=== PATIENT | male | born 1960 | race Hispanic/Latino ===

== ENCOUNTER 2024-03-12 16:31 | Emergency (ER) | payer MEDICARE, SELFPAY ==
--- OUTSIDE RECORDS SUMMARY | 2024-03-12 16:34 | XMS REPORT | Continuity of Care Document ---
Author Name Unknown Address [address] [facility] [address] [place] [address] [facility] thconnect Address [address] [facility] [address] [place] [address] Care Team Providers Care News Gathering Technician Name Role Phone Unavailable Unavailable Unavailable Encounters Start Date/Time End Date/Time Encounter Type Admission Type Attending Clinicians [facility] [place] Facility Care Department Encounter ID Source 2022-10-31 16:57:48 2022-10-31 16:57:48 Outpatient SFA SFA [id number] Riley Panda 2022-08-26 13:24:23 2022-08-26 13:24:23 Outpatient SFA SFA [id number] Riley Panda 2022-06-19 16:45:56 2022-06-19 16:45:56 Outpatient SFA SFA [id number] iRley Panda
[2024-03-12] MEDS ORDERED: METOCLOPRAMIDE 10 MG/2mL INJ ONE (17:12)
[2024-03-12] MEDS ORDERED: MORPHINE 4 MG/ML SYR ONE (17:12)
[2024-03-12] MEDS ORDERED: NA CHLORIDE 0.9% 1,000 ML ONE (17:12)
[2024-03-12] MEDS ORDERED: DIPHENHYDRAMINE 50 MG/ML VIAL ONE (17:12)
--- NOTE | 2024-03-12 17:14 | RAD REPORT ---
EXAM: CT brain without contrast HISTORY: Headache COMPARISON: None TECHNIQUE: Multiple contiguous axial images were obtained and a CT of the brain without contrast.. Sagittal and coronal reconstruction performed. Automated exposure control, adjustment of the mA and/or kV according to patient size, and/or iterative reconstruction. Unless otherwise specified, incidental f indings do not require dedicated imaging follow-up FINDINGS: An intracranial bleed is not seen Ventricles are normal caliber No extra-axial fluid collection noted Mild low-density paraventricular, deep and subcortical white matter likely ischemic changes secondary to small vessel disease No fluid within the visualized sinuses or mastoids noted. IMPRESSION: No acute intracranial abnormality noted. If the patient continues to have symptoms to suggest an acute intracranial abnormality then MRI of th e brain would be recommended.
[2024-03-12 17:25] LABS: Absolute Lymphocytes (CBC) 1.1 K/uL (0.7-4.9); Absolute Monocytes 0.3 K/uL (0.1-1.3); Absolute Neutrophil 7.4 K/uL (1.8-8.0); Basophils % 0.3 % (0-1.3); Eosinophils % 0.1 % (0-4.4); Hematocrit 44.1 % (39.6-49.0); Hemoglobin 15.3 g/dL (13.6-17.9); Lymphocytes % 12.2 % (15.3-44.8); MCH 32.1 pg (27.0-35.0); MCHC 34.7 g/dL (32.0-36.0); MCV 92.4 fL (80-100); MPV 8.1 fL (7.6-11.3); Monocytes % 3.3 % (3.3-12.3); Neutrophils % 84.1 % (41.7-73.7); Platelets 228 thou/uL (152-406); RBC Red Blood Cell Count 4.78 M/uL (4.33-5.43)
[2024-03-12 17:39] LABS: Albumin 3.5 g/dL (3.4-5.0); Albumin/Globulin Ratio 0.8 (1.1-1.8); Anion Gap 12.3 mEq/L (5.0-15.0); Bilirubin Total 0.5 mg/dL (0.2-1.0); Globulin 4.2 g/dL (2.3-3.5); Protein, Total 7.7 g/dL (6.4-8.2)
[2024-03-12 17:41] LABS: Potassium 4.3 mEq/L (3.5-5.1)
--- NOTE | 2024-03-12 17:48 | ER ---
Nurse's Notes [facility] Name: Thomas Roman Age: 63 yrs Sex: Male : 1960 Arrival Date: 03/12/2024 Time: 16:31 Bed 17 Private MD: Diagnosis: Headache Presentation: 03/12 16:40 Chief complaint: EMS states: pt not feeling well, was going to the doctor and started iw having a headache and n/v. Coronavirus screen: Client presents with at least one sign or symptom that may indicate coronavirus-19. Ebola Screen: No symptoms or risks identified at this time. Initial Sepsis Screen: Does the patient meet any 2 criteria? No. Patient's initial sepsis screen is negative. Does the patient have a suspected source of infection? No. Patient's initial sepsis screen is negative. Risk Assessment: Do you want to hurt yourself or someone else? Patient reports no desire to harm self or others. Onset of symptoms was March 12, 2024. 16:40 Method Of Arrival: EMS: [facility] iw 16:40 Acuity: DARIAN 2 iw Triage Assessment: 18:06 Headache History: The patient has had previous headaches and this one is different than me1 previous episodes, and this one is more severe than previous episodes. General: Appears uncomfortable. Pain: Also complains of. Pain: Complains of pain in head. Historical: - Allergies: 16:42 No Known Allergies; iw - PMHx: 16:42 Hypertensive disorder; Diabetes mellitus; iw - PSHx: 16:42 right index finger; iw - Immunization history:: Adult Immunizations not up to date. - Infectious Disease History:: Denies. - Social history:: Smoking status: Patient denies any tobacco usage or history of. Screenin:45 [facility] ED Fall Risk Assessment (Adult) History of falling in the last 3 months, me1 including since admission No falls in past 3 months (0 pts) Confusion or Disorientation No (0 pts) Intoxicated or Sedated No (0 pts) Impaired Gait No (0 pts) Mobility Assist Device Used No (0 pt) Altered Elimination No (0 pt) Score/Fall Risk Level 0 - 2 = Low Risk Maintained a safe environment, Provided non-skid footwear, Hourly rounding (assess needs \\T\\ fall precautionary measures) done. Abuse screen: Denies threats or abuse. Nutritional screening: No deficits noted. Tuberculosis screening: No symptoms or risk factors identified. Assessment: 16:45 General: Appears uncomfortable, well groomed, well developed, well nourished, Behavior me1 is calm, cooperative, appropriate for age, Reports pt not feeling well, was going to the doctor and started having a headache and n/v. Pain: Complains of pain in head Pain does not radiate. Pain currently is 10 out of 10 on a pain scale. Quality of pain is described as aching, throbbing, Pain began gradually, Is continuous. Neuro: Level of Consciousness is awake, alert, obeys commands, Oriented to person, place, time, situation, Appropriate for age Reports headache that is the "worst ever". Cardiovascular: Patient's skin is warm and dry. Respiratory: Airway is patent Respiratory effort is even, unlabored, Respiratory pattern is regular, symmetrical. GI: Reports nausea, vomiting. : No signs and/or symptoms were reported regarding the genitourinary system. EENT: No signs and/or symptoms were reported regarding the EENT system. Derm: Skin is intact, is healthy with good turgor, Skin is normal. Musculoskeletal: No signs and/or symptoms reported regarding the musculoskeletal system. Vital Signs: 16:40 BP 164 / 50; Pulse 73; Resp 18; Temp 97; Pulse Ox 98% on R/A; Weight 81.65 kg; Height 5 iw ft. 7 in. ; Pain 9/10; 17:00 BP 169 / 65; Pulse 73; Resp 18; Pulse Ox 100% ; me1 18:04 Pain 3/10; me1 18:05 Pain 3/10; me1 18:05 Pain 3/10; me1 18:09 BP 177 / 75; Pulse 71; Resp 18; Temp 98.5; Pulse Ox 100% ; me1 16:40 Body Mass Index 28.19 (81.65 kg, 170.18 cm) iw 16:40 Pain Scale: Adult iw 18:04 Pain Scale: Adult me1 18:05 Pain Scale: Adult me1 18:05 Pain Scale: Adult me1 ED Course: 16:32 Patient arrived in ED. ec2 16:32 Oscar Samuel MD is Attending Physician. ec2 16:37 Sal, Kelsi, RN is Primary Nurse. iw 16:42 Triage completed. iw 16:43 Arm band placed on. iw 16:45 Patient has correct armband on for positive identification. Bed in low position. Call me1 light in reach. Side rails up X2. Provided Education on: POC. Verbalized understanding.. Client placed on continuous cardiac and pulse oximetry monitoring. NIBP monitoring applied. Pulse ox on. NIBP on. 16:45 No provider procedures requiring assistance completed. me1 16:58 CT Head Brain wo Cont In Process Unspecified. EDMS 17:09 CBC with Diff Sent. me1 17:09 CMP Sent. me1 17:09 Lipase Sent. me1 17:09 Initial lab(s) drawn, by ED staff, sent to lab. Inserted saline lock: 20 gauge in right me1 antecubital area, using aseptic technique. 18:40 IV discontinued, intact, bleeding controlled, No redness/swelling at site. Pressure me1 dressing applied. Administered Medications: 17:20 Drug: morphine IVP or IV 4 mg IVP once over 4 mins Route: IVP; Infused Over: 4 mins; me1 Site: right antecubital; 18:04 Follow up: Pain 3/10 Adult; Response: No adverse reaction; Pain is decreased me1 17:20 Drug: NS 0.9% IV 1000 ml IV at 1 bolus Per protocol; to be given as a bolus over 60 me1 minutes Route: IV; Rate: 1 bolus; Site: right antecubital; 18:04 Follow up: Response: No adverse reaction; IV Status: Completed infusion; IV Intake: me1 1000ml 17:20 Drug: metoCLOPramide IVP 10 mg IVP once; over 1 to 2 minutes Route: IVP; Site: right me1 antecubital; 18:05 Follow up: Pain 3/10 Adult; Response: No adverse reaction; Pain is decreased; Nausea is me1 decreased 17:20 Drug: diphenhydrAMINE IVP 25 mg IVP once Route: IVP; Site: right antecubital; me1 18:05 Follow up: Pain 3/10 Adult; Response: No adverse reaction; Pain is decreased me1 Medication: 16:45 VIS not applicable for this client. me1 Intake: 18:04 IV: 1000ml; Total: 1000ml. me1 Outcome: 17:47 Discharge ordered by . ec2 18:30 Discharged to home via wheelchair, with family, me1 18:30 Condition: stable 18:30 Discharge instructions given to patient, Instructed on discharge instructions, follow up and referral plans. medication usage, Demonstrated understanding of instructions, follow-up care, medications, Prescriptions given X 1, 18:32 Patient left the ED. ld1 Signatures: Dispatcher [employer] EDKelsi Serrano RN RN iw Lacey Macias RN RN ld1 Lu William RN RN me1 Oscar Samuel MD MD ec2 Corrections: (The following items were deleted from the chart) 18:02 16:40 Chief complaint: EMS states: pt not feeling well, was going to the doctor and me1 started having a headache and n/v iw
--- NOTE | 2024-03-12 17:48 | EDPHYS ---
Physician Documentation [facility] Name: Thomas Roman Age: 63 yrs Sex: Male : 1960 Arrival Date: 03/12/2024 Time: 16:31 Bed 17 Private MD: ED Physician Oscar Samuel HPI: 03/12 16:33 This 63 yrs old Male presents to ER via Unassigned with complaints of ec2 headache, n/v. 16:33 Patient arrives today for headache. Patient reports she has been having headache along ec2 with nausea and vomiting that started earlier this morning. Denies any abdominal pain. Reports no cough or cold symptoms, denies fevers or chills, denies any trauma. Denies any urinary complaints.. Historical: - Allergies: 16:42 No Known Allergies; iw - PMHx: 16:42 Hypertensive disorder; Diabetes mellitus; iw - PSHx: 16:42 right index finger; iw - Immunization history:: Adult Immunizations not up to date. - Infectious Disease History:: Denies. - Social history:: Smoking status: Patient denies any tobacco usage or history of. ROS: 16:33 Constitutional: as per hpi ec2 Exam: 16:33 Constitutional: GEN: NAD Head: atraumatic Eyes: EOMI Ears: External ears are ec2 normal. CV: regular rate LUNGS: no respiratory distress ABD: non-distended SKIN: no evidence of rashes MSK: no evidence of trauma. Neuro: Cranial nerves II through XII intact, strength intact all 4 extremities. Vital Signs: 16:40 BP 164 / 50; Pulse 73; Resp 18; Temp 97; Pulse Ox 98% on R/A; Weight 81.65 kg; Height 5 iw ft. 7 in. ; Pain 9/10; 17:00 BP 169 / 65; Pulse 73; Resp 18; Pulse Ox 100% ; me1 18:04 Pain 3/10; me1 18:05 Pain 3/10; me1 18:05 Pain 3/10; me1 18:09 BP 177 / 75; Pulse 71; Resp 18; Temp 98.5; Pulse Ox 100% ; me1 16:40 Body Mass Index 28.19 (81.65 kg, 170.18 cm) iw 16:40 Pain Scale: Adult iw 18:04 Pain Scale: Adult me1 18:05 Pain Scale: Adult me1 18:05 Pain Scale: Adult me1 MDM: 16:32 Medical Screening Exam initiated ec2 16:33 Data reviewed: vital signs, nurses notes. ED course: Patient arrives today for ec2 evaluation of headache and nausea and vomiting. Examination yields intact neurologic exam. Will obtain lab work, CT imaging and treat the patient's pain. Suspect chronic migrainous symptoms, additionally considered other processes such as gastroenteritis, intracranial brain bleed, intracranial mass.. 17:45 ED course: Labs nonrevealing, CT scan of the head is nonacute.. ec2 03/12 16:33 Order name: CBC with Diff; Complete Time: 17:45 ec2 03/12 16:33 Order name: CMP; Complete Time: 17:45 ec2 03/12 16:33 Order name: Lipase; Complete Time: 17:45 ec2 03/12 16:33 Order name: CT Head Brain wo Cont; Complete Time: 17:45 ec2 03/12 16:33 Order name: IV Saline Lock; Complete Time: 17:09 ec2 03/12 16:33 Order name: Labs collected and sent; Complete Time: 17:09 ec2 Administered Medications: 17:20 Drug: morphine IVP or IV 4 mg IVP once over 4 mins Route: IVP; Infused Over: 4 mins; me1 Site: right antecubital; 18:04 Follow up: Pain 3/10 Adult; Response: No adverse reaction; Pain is decreased me1 17:20 Drug: NS 0.9% IV 1000 ml IV at 1 bolus Per protocol; to be given as a bolus over 60 me1 minutes Route: IV; Rate: 1 bolus; Site: right antecubital; 18:04 Follow up: Response: No adverse reaction; IV Status: Completed infusion; IV Intake: me1 1000ml 17:20 Drug: metoCLOPramide IVP 10 mg IVP once; over 1 to 2 minutes Route: IVP; Site: right me1 antecubital; 18:05 Follow up: Pain 3/10 Adult; Response: No adverse reaction; Pain is decreased; Nausea is me1 decreased 17:20 Drug: diphenhydrAMINE IVP 25 mg IVP once Route: IVP; Site: right antecubital; me1 18:05 Follow up: Pain 3/10 Adult; Response: No adverse reaction; Pain is decreased me1 Disposition Summary: 03/12/24 17:47 Discharge Ordered Notes: Location: Home ec2 Condition: Stable ec2 Diagnosis - Headache ec2 Followup: ec2 - With: Private Physician - When: - Reason: Re-evaluation by your physician Discharge Instructions: - Discharge Summary Sheet ec2 - General Headache Without Cause ec2 Forms: - Medication Reconciliation Form ec2 - Antibiotic Education ec2 - Prescription Opioid Use ec2 - Patient Portal Instructions ec2 - Leadership Thank You Letter ec2 Prescriptions: - Compazine 10 mg Oral Tablet - take 1 tablet ORAL route every 8 hours As needed; 20 tablet; Refills: 0, ec2 Product Selection Permitted Signatures: Dispatcher [employer] Kelsi Solo RN RN iw Lu William RN RN me1 Oscar Samuel MD MD ec2 Corrections: (The following items were deleted from the chart) 16:33 16:33 CBC+H.LAB.BRZ ordered. EDMS EDMS 16:33 16:33 COMPREHENSIVE METABOLIC PANEL+C.LAB.BRZ ordered. EDMS EDMS 16:33 16:33 LIPASE+C.LAB.BRZ ordered. EDMS EDMS 16:33 16:33 Urinalysis+U.LAB.BRZ ordered. EDMS EDMS
[2024-03-12 19:42] VITALS: O2SAT 100
[2024-03-12 19:45] VITALS: BP 177/75; TEMP 98.5
== END 2024-03-12 18:32 | disposition home or self-care (01) ==
LOC: ER 16:31
DX: R51.9 Headache, unspecified (principal); R11.2 Nausea with vomiting, unspecified
CPT/HCPCS: 96361; 85025; 36415; 83690; 80053; 70450; 96375; 96374; 99284; J2765; J1200; J7030